=== PATIENT | female | born 1950 ===

== ENCOUNTER 2022-03-26 03:45 | Outpatient (CLI) | payer MEDICARE, BC, SELFPAY ==
[2022-03-26 12:05] LABS: Abs Immature Grans 0.04 10^3/uL (0.0-0.06); Absolute Monocyte Count 0.79 10^3/uL (0.1-0.8); Basophils % 0.2; HCT 33.8 % (36.0-46.0); Immature Grans % 0.3; Lymphocytes % 3.7; MCH 31.5 pg (27.0-33.0); MCHC 32.5 % (32.0-36.0); MCV 97 fL (80-95); MPV 9.6 fL (8.0-11.0); Monocytes % 6.6; Neutrophils % 89.2; Platelet Count 209 10^3/uL (130-400); RBC 3.49 10^6/uL (3.93-5.22); RDW 12.8 % (11.7-14.6); RDW-SD 45.4 fL; WBC 12.01 10^3/uL (4.4-10.8)
[2022-03-26 12:09] LABS: Absolute Basophil Count 0.02 10^3/uL (0.0-0.2); Absolute Lymphocyte Count 0.44 10^3/uL (1.2-3.4); Absolute Neutrophil Count 10.71 10^3/uL (1.2-6.7)
[2022-03-26 12:26] LABS: ALT 61 U/L (14-59); AST 223 U/L (15-37); Albumin 2.9 g/dL (3.4-5.0); Alkaline Phosphatase 371 U/L (46-116); Anion Gap 8.3 mmol/L (3-11); BUN 14 mg/dL (7-18); Bilirubin, Total 1.8 mg/dL (0.2-1.0); CO2 28.7 mmol/L (21.0-32.0); Calcium 8.6 mg/dL (8.5-10.1); Chloride 94 mmol/L (98-107); Estimated GFR 59.49 (mL/min/1.73m2); FREE T4 1.62 ng/dL (0.76-1.46); Glucose 148 mg/dL (74-106); Sodium 131 mmol/L (136-145); TSH 9.63 uIU/mL (0.36-3.74); Total Protein 6.7 g/dL (6.4-8.2)
[2022-03-26 12:27] LABS: LDH 1529 U/L (81-234)
== END 2022-03-26 03:46 | disposition home or self-care (01) ==
PROVIDERS: Visit Provider Internal Medicine Hospice and Palliative Medicine
DX: E03.2 Hypothyroidism due to medicaments and other exogenous substances (principal); Z79.899 Other long term (current) drug therapy; C34.91 Malignant neoplasm of unspecified part of right bronchus or lung
CPT/HCPCS: 36415; 80053; 83615; 84439; 84443; 85025